=== PATIENT | male | born 1945 | race Caucasian/White ===

== ENCOUNTER 2017-10-24 09:43 | Observation (INO) | payer OTHER ==
[~2017-10-24] VITALS: Ht 182.9 cm; Wt 111.2 kg
[~2017-10-24 09:43] MED LIST: ASPI-496 PO; ATOR40TA78 PO; BUPR150T73 PO; CHOL100012 PO; DULO30CA2 PO; FLUT9.9S NAS; LORA10TA3 PO; MULT1TAB60 PO; NAPR220C2 PO; UBID100C24 PO; VITA1CAP PO
[2017-10-24 10:30] VITALS: BP 145/94
[2017-10-24] MEDS ORDERED: SODIUM CHLORIDE 0.9% 1,000 ML IV SCH (10:31)
[2017-10-24] MEDS ORDERED: CEFAZOLIN PMX 1GM/50ML 50 ML ONE (10:36)
[2017-10-24] MEDS ORDERED: CEFAZOLIN PMX 1GM/50ML 50 ML IV ONE (11:00)
[2017-10-24] MEDS ORDERED: NALOXONE 1 MG/ML, 2ML ONE ×2 (11:33→16:43)
[2017-10-24] MEDS ORDERED: FLUMAZENIL 0.1 MG/1 ML, 5ML ONE (11:33)
[2017-10-24] MEDS ORDERED: FENTANYL PF 100 MCG/2ML ONE ×3 (11:33→16:43)
[2017-10-24] MEDS ORDERED: MIDAZOLAM 1 MG/ML, 5ML ONE ×2 (11:33→17:07)
[2017-10-24] MEDS ORDERED: LIDOCAINE 2%, 20ML ONE (11:47)
[2017-10-24] MEDS ORDERED: VISIPAQUE 270 MG/ML, 50ML BOTTLE ONE (12:44)
[2017-10-24] MEDS ORDERED: PHENAZOPYRIDINE 200 MG TABLET ONE (14:21)
[2017-10-24] MEDS ORDERED: PROMETHAZINE 25 MG SUPP PR PRN (16:00)
[2017-10-24] MEDS ORDERED: PROMETHAZINE 25 MG SUPP PR ONE (16:09)
[2017-10-24] MEDS ORDERED: LORATADINE 10 MG TABLET PO PRN (18:30)
[2017-10-24] MEDS ORDERED: ACETAMINOPHEN 325 MG TABLET PO PRN (18:30)
[2017-10-24] MEDS: SODIUM CHLORIDE 0.9% 1,000 ML IV SCH (18:50)
[2017-10-24 19:09] VITALS: BP 148/88
[2017-10-24 19:15] LABS: BASOPHILS # (AUTO) 0.03 x10^3/uL (0-0.1); BASOPHILS % (AUTO) 0 % (0-1); EOSINOPHILS % (AUTO) 0 % (1-7); LYMPHOCYTES # (AUTO) 0.84 x10^3/uL (1-3.4); LYMPHOCYTES % (AUTO) 9 % (22-44); MD NO; MEAN CORPUSCULAR HEMOGLOBIN 31.4 pg (27.5-34.5); MEAN CORPUSCULAR HGB CONC 34.1 g/dL (33.2-36.2); MEAN PLATELET VOLUME 7.3 fL (7.4-10.4); MONOCYTES # (AUTO) 0.38 x10^3/uL (0.2-0.8); MONOCYTES % (AUTO) 4 % (2-9); NEUTROPHILS % (AUTO) 87 % (42-75); PLATELET COUNT 201 x10^3/uL (130-400); RED BLOOD COUNT 4.75 x10^6/uL (4.38-5.82); RED CELL DISTRIBUTION WIDTH 13.1 % (9.4-14.8)
[2017-10-24 19:24] LABS: ANION GAP 6 mmol/L (5-15); CALCIUM 8.9 mg/dL (8.5-10.1); CHLORIDE 109 mmol/L (98-107); CREATININE 0.96 mg/dL (0.7-1.3)
[2017-10-24] MEDS ORDERED: ATORVASTATIN 40 MG TABLET PO SCH (21:00)
[2017-10-24] MEDS: FLUTICASONE NASAL SPRAY 16GM NAS SCH (21:00)
[2017-10-24] MEDS: CHOLECALCIFEROL 1,000 UNIT TABLET PO SCH (23:18)
[2017-10-25 00:11] VITALS: BP 136/84
[2017-10-25 02:56] LABS: CULTURE INDICATED? YES; MICROSCOPIC INDICATED
[2017-10-25 04:01] VITALS: BP 148/89
[2017-10-25] MEDS: SODIUM CHLORIDE 0.9% 1,000 ML IV SCH (04:26)
[2017-10-25 08:00] LABS: BASOPHILS # (AUTO) 0.02 x10^3/uL (0-0.1); BASOPHILS % (AUTO) 0 % (0-1); EOSINOPHILS # (AUTO) 0.07 x10^3/uL (0-0.4); EOSINOPHILS % (AUTO) 1 % (1-7); LYMPHOCYTES # (AUTO) 1.55 x10^3/uL (1-3.4); LYMPHOCYTES % (AUTO) 19 % (22-44); MD NO; MEAN CORPUSCULAR HEMOGLOBIN 31.4 pg (27.5-34.5); MEAN CORPUSCULAR HGB CONC 34.7 g/dL (33.2-36.2); MEAN CORPUSCULAR VOLUME 90.6 fL (81-97); MONOCYTES # (AUTO) 0.71 x10^3/uL (0.2-0.8); MONOCYTES % (AUTO) 9 % (2-9); NEUTROPHILS # (AUTO) 5.76 x10^3/uL (1.8-6.8); NEUTROPHILS % (AUTO) 71 % (42-75); PLATELET COUNT 203 x10^3/uL (130-400); RED BLOOD COUNT 4.53 x10^6/uL (4.38-5.82); RED CELL DISTRIBUTION WIDTH 12.8 % (9.4-14.8)
[2017-10-25] MEDS: CHOLECALCIFEROL 1,000 UNIT TABLET PO SCH (08:16)
[2017-10-25] MEDS: FLUTICASONE NASAL SPRAY 16GM NAS SCH (08:17)
[2017-10-25] MEDS ORDERED: DULOXETINE 30 MG CAPSULE.DR PO SCH (09:00)
[2017-10-25] MEDS ORDERED: MULTIVITS,STRESS FORMULA 1 TABLET PO SCH (09:00)
[2017-10-25] MEDS ORDERED: ASPIRIN 81 MG TABLET EC PO SCH (09:00)
[2017-10-25] MEDS ORDERED: MULTIVITAMIN 1 TABLET PO SCH (09:00)
[2017-10-25] MEDS ORDERED: BUPROPION SR 150 MG TABLET PO SCH (09:00)
[2017-10-25 09:22] VITALS: BP 147/80
[2017-10-25] MEDS ORDERED: OXYcodone/APAP 7.5/325MG TABLET PO PRN (12:00)
== END 2017-10-25 12:45 | disposition home or self-care (01) ==
LOC: OUT 09:43 → 4NOR 17:34 → OUT 18:17
PROVIDERS: ADMIT Urology; ATTEND Urology
DX: N20.0 Calculus of kidney (principal); C61 Malignant neoplasm of prostate; E78.5 Hyperlipidemia, unspecified; F32.9 Major depressive disorder, single episode, unspecified; F43.10 Post-traumatic stress disorder, unspecified; Z85.46 Personal history of malignant neoplasm of prostate
CPT/HCPCS: 36415; 50433; 50435; 74176; 75984; 80048; 81001; 85025; 85610; 87086; 96361; 96365; 99156; 99157; C1729; C1751; C1769; C1894; C2625; G0378; J0690; J2250; J3010; J3490; J7030; Q9966; J2310

== ENCOUNTER 2017-10-27 10:08 | Observation (INO) | payer OTHER ==
[2017-10-17 09:30] VITALS: BP 136/84
[2017-10-24 11:10] LABS: INTERNATIONAL NORMALIZED RATIO 1.02 (0.93-1.1); PROTHROMBIN TIME 10.5 Seconds (9.6-11.5)
[~2017-10-27] VITALS: Ht 182.9 cm; Wt 107.2 kg
[~2017-10-27 10:08] MED LIST changes: +PHENAZOPYRIDINE 200 MG TABLET PO ONE
[2017-10-27] MEDS ORDERED: LACTATED RINGERS 1,000 ML IV SCH (10:42)
[2017-10-27] MEDS ORDERED: LIDOCAINE-MPF 1%, 2ML INFIL ONE (11:00)
[2017-10-27] MEDS ORDERED: MIDAZOLAM 1 MG/ML, 2ML ONE (11:33)
[2017-10-27] MEDS ORDERED: FENTANYL PF 250 MCG/5ML ONE (11:33)
[2017-10-27] MEDS ORDERED: ACETAMINOPHEN 325 MG TABLET PO PRN (12:00)
[2017-10-27] MEDS ORDERED: OXYcodone 5 MG/5 ML ORAL.SOL UDC PO PRN (12:00)
[2017-10-27] MEDS ORDERED: MORPHINE SULFATE 4 MG/ML, 1ML IVPush PRN (12:00)
[2017-10-27] MEDS ORDERED: ONDANSETRON ODT 8 MG PO PRN (12:00)
[2017-10-27] MEDS ORDERED: PROMETHAZINE 25 MG/ML, 1ML IV PRN (12:00)
[2017-10-27] MEDS ORDERED: MEPERIDINE/PF 25MG/0.5ML IVPush PRN (12:00)
[2017-10-27] MEDS ORDERED: ROCURONIUM 10MG/ML,5ML ONE (12:02)
[2017-10-27] MEDS ORDERED: PHENYLEPHRINE 10 MG/ML ONE (12:02)
[2017-10-27] MEDS ORDERED: OMNIPAQUE 350 MG/ML, 50 ML BOTTLE ONE (12:30)
[2017-10-27] MEDS ORDERED: ONDANSETRON 2MG/ML, 2ML IV PRN (15:00)
[2017-10-27] MEDS ORDERED: OPIUM/BELLADONNA SUPP.RECT 16.2-60 MG PR PRN (15:00)
[2017-10-27] MEDS ORDERED: ONDANSETRON 2MG/ML, 2ML ONE (15:13)
[2017-10-27] MEDS ORDERED: SUCCINYLCHOLINE 20 MG/ML, 10ML ONE (15:13)
[2017-10-27] MEDS ORDERED: NEOSTIGMINE 1 MG/ML, 10ML ONE (15:13)
[2017-10-27] MEDS ORDERED: DEXAMETHASONE 4 MG/ML, 1ML ONE (15:13)
[2017-10-27] MEDS ORDERED: PROPOFOL 10 MG/ML, 20ML ONE (15:13)
[2017-10-27] MEDS ORDERED: GLYCOPYRROLATE 0.2MG/1ML, 5ML ONE (15:13)
[2017-10-27] MEDS ORDERED: CEFAZOLIN 1,000 MG ONE (15:13)
[2017-10-27] MEDS ORDERED: FENTANYL PF 100 MCG/2ML ONE (16:02)
[2017-10-27] MEDS ORDERED: ACETAMINOPHEN 650 MG/20.3 ML UDC ONE (16:02)
[2017-10-27] MEDS ORDERED: OXYcodone 5 MG/5 ML ORAL.SOL UDC ONE (16:02)
[2017-10-27] MEDS: FENTANYL PF 100 MCG/2ML IV PRN ×2 (16:08→16:20)
[2017-10-27] MEDS: CIPROFLOXACIN/PMX 400MG/200ML 200 ML IVPB SCH (17:14)
[2017-10-27] MEDS: OXYcodone/APAP 7.5/325MG TABLET PO PRN ×2 (17:39→21:56)
[2017-10-27] MEDS: POTASSIUM CHLORIDE 20 MEQ in D5%-0.9% NACL 1,000 ML IV SCH (17:50)
[2017-10-27] MEDS ORDERED: LORATADINE 10 MG TABLET PO PRN (18:00)
[2017-10-27 19:25] VITALS: BP 131/78
[2017-10-27] MEDS: FLUTICASONE NASAL SPRAY 16GM NAS SCH (21:00)
[2017-10-27] MEDS ORDERED: ATORVASTATIN 40 MG TABLET PO SCH (21:00)
[2017-10-27] MEDS: CHOLECALCIFEROL 1,000 UNIT TABLET PO SCH (21:56)
[2017-10-28] MEDS: CIPROFLOXACIN/PMX 400MG/200ML 200 ML IVPB SCH (00:54)
[2017-10-28 03:06] VITALS: BP 105/67
[2017-10-28 04:48] VITALS: BP 98/64
[2017-10-28 05:14] LABS: ANION GAP 6 mmol/L (5-15); CHLORIDE 106 mmol/L (98-107); CREATININE 0.94 mg/dL (0.7-1.3)
[2017-10-28] MEDS: POTASSIUM CHLORIDE 20 MEQ in D5%-0.9% NACL 1,000 ML IV SCH (05:22)
[2017-10-28] MEDS: CHOLECALCIFEROL 1,000 UNIT TABLET PO SCH (08:21)
[2017-10-28] MEDS: FLUTICASONE NASAL SPRAY 16GM NAS SCH (08:22)
[2017-10-28] MEDS: OXYcodone/APAP 7.5/325MG TABLET PO PRN (08:22)
[2017-10-28] MEDS ORDERED: UBIDECARENONE 200 MG PO SCH (09:00)
[2017-10-28] MEDS ORDERED: BUPROPION SR 150 MG TABLET PO SCH (09:00)
[2017-10-28] MEDS ORDERED: DULOXETINE 30 MG CAPSULE.DR PO SCH (09:00)
[2017-10-28] MEDS ORDERED: MULTIVITS,STRESS FORMULA 1 TABLET PO SCH (09:00)
[2017-10-28] MEDS ORDERED: MULTIVITAMIN 1 TABLET PO SCH (09:00)
[2017-10-28 09:14] VITALS: BP 108/68
[2017-10-28 10:58] VITALS: BP 128/79
[2017-10-28] MEDS ORDERED: OXYC-302 PO (11:15)
== END 2017-10-28 12:00 | disposition home or self-care (01) ==
LOC: OUT 10:08 → ORIP 14:57 → 4NOR 16:58 → DCLOUNGE 10-28 11:57
PROVIDERS: ADMIT Urology; ATTEND Urology
DX: N20.0 Calculus of kidney (principal); Z87.442 Personal history of urinary calculi
CPT/HCPCS: 36415; 50080; 74425; 80048; 82360; 85018; 88300; 96365; C1727; C1758; C1769; C2617; C2627; G0378; J0330; J0690; J0744; J1100; J2250; J2370; J2405; J2704; J2710; J3010; J3480; J3490; J7120; Q9967; 85610; J7042

== ENCOUNTER → 2020-05-12 | Outpatient (CLI) | payer OTHER ==
[~2020-05-12] MED LIST changes: +APIX5TAB PO; +CETI10TA18 PO; +GABA-826 PO; +IPRA15SP NAS; +LORA-247 PO; -LORA10TA3 PO; +LORA10TA75 PO; +METO25TA35 PO; +MONT10TA6 PO; +MULT-449 PO; -MULT1TAB60 PO; +OXYC-302 PO; -PHENAZOPYRIDINE 200 MG TABLET PO ONE
[2020-05-12 15:47] LABS: BASOPHILS % (AUTO) 1 % (0-1); EOSINOPHILS % (AUTO) 3 % (1-7); LYMPHOCYTES % (AUTO) 22 % (22-44); MEAN CORPUSCULAR HEMOGLOBIN 30.6 pg (27.5-34.5); MEAN CORPUSCULAR HGB CONC 34.3 g/dL (33.2-36.2); MEAN PLATELET VOLUME 7.7 fL (7.4-10.4); MICROSCOPIC AUTO; MONOCYTES % (AUTO) 13 % (2-9); NEUTROPHILS % (AUTO) 61 % (42-75); PLATELET COUNT 179 x10^3/uL (130-400); RED BLOOD COUNT 4.64 x10^6/uL (4.38-5.82); RED CELL DISTRIBUTION WIDTH 14.9 % (9.4-14.8)
[2020-05-12 15:51] LABS: MD NO
[2020-05-12 15:54] LABS: ANION GAP 5 mmol/L (5-15); CALCIUM 9.1 mg/dL (8.5-10.1); CHLORIDE 106 mmol/L (98-107); CREATININE 0.95 mg/dL (0.7-1.3)
== END | disposition home or self-care (01) ==
LOC: STAR 14:36
PROVIDERS: ATTEND Urology
DX: Z01.818 Encounter for other preprocedural examination (principal); N20.0 Calculus of kidney; I48.91 Unspecified atrial fibrillation; Z20.828 Contact with and (suspected) exposure to other viral communicable diseases
CPT/HCPCS: 80048; 81001; 85025; 87086; 87635; 93005

== ENCOUNTER 2020-05-17 11:12 | Day surgery (SDC) | payer OTHER ==
[~2020-05-17] VITALS: Ht 182.9 cm; Wt 110.0 kg
[2020-05-17] MEDS ORDERED: LACTATED RINGERS 1,000 ML IV SCH (12:00)
[2020-05-17] MEDS ORDERED: CHLORHEXIDINE 15 ML UDC MM ONE (12:00)
[2020-05-17] MEDS ORDERED: LINE600T12 PO (12:02)
[2020-05-17 12:05] VITALS: BP 126/81
[2020-05-17] MEDS ORDERED: FENTANYL PF 100 MCG/2ML ONE (14:04)
[2020-05-17] MEDS ORDERED: ONDANSETRON 2MG/ML, 2ML IVPush PRN (15:00)
[2020-05-17] MEDS ORDERED: LABETALOL 5MG/ML, 20ML IV PRN (15:00)
[2020-05-17] MEDS ORDERED: FENTANYL PF 100 MCG/2ML IV PRN (15:00)
[2020-05-17] MEDS ORDERED: ACETAMINOPHEN 325 MG TABLET PO PRN (15:00)
[2020-05-17] MEDS ORDERED: OXYcodone 5 MG/5 ML ORAL.SOL UDC PO PRN (15:00)
[2020-05-17] MEDS ORDERED: hydrALAzine 20 MG/ML, 1ML IV PRN (15:00)
[2020-05-17] MEDS ORDERED: PROPOFOL 10 MG/ML, 20ML ONE (15:14)
[2020-05-17] MEDS ORDERED: ONDANSETRON 2MG/ML, 2ML ONE (15:14)
[2020-05-17] MEDS ORDERED: CEFAZOLIN 1,000 MG ONE (15:14)
[2020-05-17] MEDS ORDERED: GABAPENTIN 100 MG CAPSULE PO SCH (16:00)
[2020-05-17] MEDS ORDERED: ATORVASTATIN 40 MG TABLET PO SCH (21:00)
[2020-05-17] MEDS ORDERED: METOPROLOL TARTRATE 25 MG TAB PO SCH (21:00)
[2020-05-17] MEDS ORDERED: LINEZOLID 600 MG TABLET PO SCH (21:00)
[2020-05-18] MEDS ORDERED: DULOXETINE 30 MG CAPSULE.DR PO SCH (09:00)
[2020-05-18] MEDS ORDERED: BUPROPION SR 150 MG TABLET PO SCH (09:00)
[2020-05-18] MEDS ORDERED: MONTELUKAST 10 MG TABLET PO SCH (09:00)
[2020-05-18] MEDS ORDERED: LORATADINE 10 MG TABLET PO SCH (09:00)
== END 2020-05-17 17:20 | disposition home or self-care (01) ==
LOC: OUT 11:12
PROVIDERS: ATTEND Urology
DX: N20.0 Calculus of kidney (principal); C61 Malignant neoplasm of prostate; I10 Essential (primary) hypertension; I48.91 Unspecified atrial fibrillation; Z79.899 Other long term (current) drug therapy; Z87.442 Personal history of urinary calculi; Z87.891 Personal history of nicotine dependence; Z88.5 Allergy status to narcotic agent; Z88.8 Allergy status to other drugs, medicaments and biological substances; Z91.013 Allergy to seafood
CPT/HCPCS: 50590; J0690; J2405; J2704; J3010; J7120